=== PATIENT | male | born 1985 ===

== ENCOUNTER → 2022-03-03 | Emergency (ER) | payer OTHER ==
[~2022-03-03] VITALS: Ht 180.3 cm; Wt 9.1 kg
[~2022-03-03] MED LIST: DESCOVY 200-251 EACH PO; OMEPRAZOLE40 MG PO; TIVICAY50 MG PO
== END | disposition left against medical advice (07) ==
LOC: ER 09:02
DX: R10.84 Generalized abdominal pain (principal); R50.9 Fever, unspecified